=== PATIENT | male | born 1995 | race Caucasian/White ===

== ENCOUNTER 2024-01-26 19:23 | Emergency (ER) | payer SELFPAY ==
[2024-01-26 19:28] VITALS: BP 185/108
[2024-01-26] MEDS: TORADOL 30 MG IV (19:37)
[2024-01-26] MEDS: ZOFRAN 4 MG IV (19:39)
[2024-01-26] MEDS: NSS 1000 IV (19:39)
--- NOTE | 2024-01-26 19:39 | ED.GENMED ---
History of Present Illness
General
Chief Complaint: Abdominal Pain
Source: patient
Exam Limitations: none
Time Seen by Provider: 01/26/24 19:31
History of Present Illness
History of Present Illness:
This is a 28 year old male that comes in with c/o right flank pain. States that this started yesterday and today the pain got worse. State that it is in the right back and flank. States that he is nauseated and vomiting. States that he also has a
headache. Denies any fever, chills, chest pain, SOB, diarrhea, dizziness, urinary burning.
Past History
Past History
ED Past Medical History: Other (TBI, Lacerated Spleen)
ED Past Surgical History: Orthopedic (Clavicle repair Left)
Social History
Tobacco: Former smoker
Alcohol: Occasional
Drug: Marijuana
Personal: Single
Living: with family
Review of Systems
Review of Systems
All Other Systems: ROS reviewed and negative except as documented in HPI and ROS
Constitutional: Reports no symptoms; Denies fever or chills
EENT: Reports no symptoms
Respiratory: Reports no symptoms; Denies cough or trouble breathing
Cardiac: Reports no symptoms; Denies chest pain
ABD/GI: Reports abdominal pain (Right Sided), nausea and vomiting; Denies diarrhea
: Reports flank pain (Right sided); Denies dysuria, frequency or urgency
Musculoskeletal: Reports no symptoms
Skin: Reports no symptoms
Neurological: Reports headache; Denies dizzy
Psychiatric: Reports no symptoms
Phy Exam
General Physical Exam
General Presentation: moderate distress (Hyperventilating at this time)
General age: appears stated age
General Skin: diaphoretic
General Habitus: normal
General Mental: alert
General Hydration: appears well hydrated
ENT Exam
ENT Exam: TM's normal, pharynx normal and neck supple
Eye Exam
Eye Exam: EOMI
Cardiovascular Exam
Cardiovascular Exam: no edema, no murmur, normal peripheral pulses and tachycardia
Pulmonary Exam
Pulmonary Exam: lungs clear, no respiratory distress, no rales, chest non tender, no crackles, no rhonchi, no wheezing and no cough
Gastrointestinal Exam
Gastrointestinal Exam: normal bowel sounds, soft, no organomegaly, no pulsatile mass, non distended, cva tenderness (Right Sided) and tender (Slight right sided tenderness with palpation)
Musculoskeletal Exam
Musculoskeletal Exam: full ROM and no edema
Skin Exam
Skin Exam: no rash, no petechia and other (Clammy)
Psychiatric Exam
Psychiatric Exam: anxious
Course
Orders/Labs/Results
Orders:
Orders
01/26/24 19:36
Complete Blood Count/With Diff Urgent
Comprehensive Metabolic Panel Urgent
Lipase Urgent
Ketorolac [Toradol] 30 mg .ROUTE .STK-MED ONE
01/26/24 19:37
Ketorolac [Toradol] 30 mg IV NOW STA
Ondansetron Injectable [Zofran] 4 mg .ROUTE .STK-MED ONE
01/26/24 19:38
0.9% Sodium Chloride 1000 ml [Nss] 1,000 ml IV BOLUS
01/26/24 19:39
CT Abd/pelvis W Iv Cont Urgent
Comment:
Reason For Exam: Right lower abd pain/flank pain
Ondansetron Injectable [Zofran] 4 mg IV NOW STA
01/26/24 19:50
HYDROmorphone [Dilaudid] 0.5 mg IV NOW STA
01/26/24 19:51
HYDROmorphone [Dilaudid] 0.5 mg .ROUTE .STK-MED ONE
01/26/24 20:14
Acetaminophen 1000MG/100Ml [Ofirmev] 1,000 mg in 100 ml IV ONCE
Acetaminophen IV Indication:: ED Narcotic Naive Pt-ONCE
01/26/24 20:16
Fentanyl, Urine Urgent
Glucose Urgent
Urinalysis Reflex To Culture Urgent
Date Specimen was Collected: 01/26/24
Time Specimen was Collected: 20:14
Urine Drug Abuse Screen Urgent
Date Specimen was Collected: 01/26/24
Time Specimen was Collected: 20:14
Urine Microscopic Reflex Cult Urgent
Urine Culture Urgent
ANTHONY Source: U
Specimen Description:
Date Specimen was Collected: 01/26/24
Time Specimen was Collected: 20:14
01/26/24 20:30
Add On- LAB Urgent
Tests Added?: urine drug abuse screen
01/26/24 21:40
HYDROmorphone [Dilaudid] 1 mg IV NOW STA
Abnormal Lab Results
01/26/24 01/26/24
19:36 20:16
WBC 13.9 H 10^3/uL
(4.8-10.8)
Abs Immat Gran (auto) 0.1 H 10^3/uL
(0-0.05)
Absolute Neuts (auto) 9.4 H 10^3/uL
(1.4-6.5)
Absolute Monos (auto) 1.0 H 10^3/uL
(0.1-0.6)
Glucose 48 L* mg/dl 107 H mg/dl
(70-99) (70-99)
Calcium 10.9 H mg/dl
(8.4-10.2)
Total Protein 8.4 H g/dl
(6.3-8.2)
Albumin 5.3 H g/dl
(3.5-5.0)
Ur Occult Blood Reflex 4+ A
(Negative)
Leukocyte Esterase Rfl 2+ A
(Negative)
Urine RBC 3-6 A /HPF
(0-2)
Urine WBC (Reflex) 16-20 A /HPF
(0-5)
Urine Bacteria (Reflex) Many A
(Negative)
U Methamphetamines Scrn Positive H
(Negative)
U Marijuana (THC) Screen Positive H
(Negative)
01/26/24 19:36
01/26/24 20:16
Leukocytosis, Glucose was not 48, (glucose was not 48, finger stick was 98 and with repeat BS by chemistry it was 107), Calcium slightly elevated. Total protein slightly elevated. Albumin slightly elevated. Urine questionable for infection. Urine
drug positive for Methamphetamines and marijuana.
Vital Signs
Initial and Last Documented VS:
Initial Vital Signs
Temp Pulse Resp Pulse Ox
97.5 F 124 16 97
01/26/24 19:24 01/26/24 19:24 01/26/24 19:24 01/26/24 19:24
Last Documented Vital Signs
Temp Pulse Resp BP Pulse Ox
97.5 F 67 15 119/57 94
01/26/24 19:24 01/26/24 22:15 01/26/24 22:15 01/26/24 22:01 01/26/24 22:15
Reiki Practitioner consulted with Physician
Reiki Practitioner consulted with physician?: Yes
Name of Physician Consulted: Dr. Robin
MDM/Problems Addressed
Differential Diagnosis Includes:
Renal calculus, Appendicitis
MDM/Problems Addressed:
This is a 28 year old male that comes in with c/o right sided flank/abd pain. States that this started yesterday and has continued to get worse today.
Will chest labs, give IV fluids and pain medication. Will get Ct scan.
'
Patient blood sugar on his chemistry came back at 48. However, finger stick at this time is 98. Will recent Glucose
Back into see patient. Patient states that he is feeling better. Explained that he has a 3mm stone that is proximal in the ureter. Offered patient admission but he refused. Will have patient use Tylenol 1000mg every 6 hours and Ibuprofen 600mg every
6 hours for pain. Will also give a prescription for Zofran and Oxycodone for severe pain. Will also give patient Keflex to treat any UTI symptoms. Patient to strain his urine. Return with increased or changing pain, fever, or any other concerns.
Chronic conditions affecting care:
NA
Acute Exacerbation and/or Progression of Chronic Illness:
NA
*Radiology
Radiology exam reviewed: radiology read reviewed (CT night hawk- Obstructing 3mm right UPJ stone with associated mild hydronephrosis and delayed renal enhancement. Few additional punctate nonobstructing renal stones bilaterally. Decompressed bladder
with diffuse wall thickening. Correlate with urinalysis for Cystitis. Appendix not visualized.) and other (CT cont- no apparent bowel pathology. No pericholecystic or peripancreatic inflammation. )
*Pulse Oximetry
Patient hypoxic: no
*EKG
Interpreted by ED Provider?: NA
Rate: EKG- N/A
*Business Line Manager Interpretation
Rate: tachycardiac
Heart Rate: 113
Rhythm: sinus tachycardia
*Critical Care Note
Total Time (30-74mins, 75-104mins- exclusive of procedures): Not Applicable
ED Attending Note
-
Portions of this chart may have been created with voice recognition software.� Occasional wrong word or��sound alike� substitutions may have occurred due to the inherent limitations of voice recognition software.
Discharge Plan
Departure
Patient Disposition: Home (Routine Discharge)
Date of Disposition: 01/26/24
Time of Disposition: 22:46
Patient with high blood pressure during this ER visit?: No
Condition: Good
Covid-19: Not Applicable
Discharge Problem:
Renal calculus, right
Instructions: Renal Colic (DC), How to Strain Your Urine
Prescriptions:
New
ondansetron 4 mg tablet,disintegrating
4 mg PO Q8H PRN (Reason: nausea and vomiting) Qty: 10 0RF
oxycodone 5 mg tablet
5 mg PO Q8H PRN (Reason: Pain) Qty: 10 0RF
cephalexin 500 mg capsule
500 mg PO BID 7 Days Qty: 14 0RF
No Action
penicillin V potassium 500 mg tablet
500 mg PO QID Qty: 39 0RF
Referrals:
NONE,* [Active] -
Activity Restrictions/Additional Instructions:
As discussed, you have a 3mm proximal renal calculus. Your urine is also questionable for infection. You have been offered admission but have decided to go home. You have had three prescription sent to your Pharmacy. The first is for Zofran to help
with any nausea/vomiting. The Second is Oxycodone to help with severe pain. The last is Keflex to help with any urinary tract infection. You may also use Tylenol 1000mg every 6 hours for pain and alternate with ibuprofen 600mg every 6 hours with
food for pain. Please increase your water intake to 8-8oz glasses daily. Please strain your urine. Follow up with the Urologist in the next 5-7 days. IF YOU HAVE FEVER, INCREASED OR CHANGING PAIN, OR YOU HAVE ANY OTHER CONCERNS PLEASE RETURN TO THE
EMERGENCY ROOM.
Interventions
Interventions:
*Risk Screen - Suicide Last Done: 01/26/24 19:27
*Neglect/Abuse Screening Last Done: 01/26/24 19:27
*ED COVID-19 Vaccine History Last Done: 01/26/24 19:27
GE-Bwxywh-Xzkcepljxv Assessment Last Done: 01/26/24 19:41
Discharge Date and Time
Print Language: TAMAZIGHT
[2024-01-26 19:49] LABS: % Basophils 0.3 % (0-2); % Eosinophils 0.9 % (0-6); % Immature Granulocytes 0.4 % (0-0.5); % Monocytes 7.5 % (1.7-9.3); % Neutrophils 67.9 % (42.2-75.2); Absolute Eosinophils 0.1 10^3/uL (0-0.7); Absolute Immature Granulocytes 0.1 10^3/uL (0-0.05); Absolute Lymphocytes 3.2 10^3/uL (1.2-3.4); Absolute Neutrophils 9.4 10^3/uL (1.4-6.5); Hematocrit 43.5 % (39.0-52.0); Hemoglobin 14.6 g/dL (13.0-18.0); Mean Corp Hgb Conc. 33.6 g/dL (33.0-37.0); Mean Corpuscular Hgb 30.6 pg (27.0-31.0); Mean Corpuscular Volume 91.2 fL (80.0-94.0); Mean Platelet Volume 9.1 fL (7.4-10.4); Nucleated Red Blood Cells % 0 % (-); Platelet Count 330 10^3/uL (130-400); Red Blood Cell Count 4.77 10^6/uL (4.70-6.10); Red Cell Dist. Width 12.9 % (11.5-14.5); White Blood Cell Count 13.9 10^3/uL (4.8-10.8)
[2024-01-26] MEDS: DILAUDID 0.5 MG IV (19:52)
[2024-01-26 20:07] LABS: AST (SGOT) 33 U/L (17-59); Albumin 5.3 g/dl (3.5-5.0); Alkaline Phosphatase 90 U/L (38-126); Blood Urea Nitrogen 20 mg/dl (9-20); Calcium 10.9 mg/dl (8.4-10.2); Carbon Dioxide 26 mmol/L (22-30); Chloride 102 mmol/L (98-107); Glucose 48 mg/dl (70-99); Lipase 78 U/L (23-300); Potassium 4.2 mmol/L (3.5-5.1); Sodium 143 mmol/L (135-145); Total Bilirubin 0.4 mg/dl (0.2-1.3); Total Protein 8.4 g/dl (6.3-8.2); eGFR > 60.00
[2024-01-26 20:11] LABS: Glucose - Point of Care 98 mg/dl (70-99)
[2024-01-26] MEDS: OFIRMEV 100 IV (20:19)
[2024-01-26 20:24] LABS: Urine Albumin Trace (Neg - Trace); Urine Bilirubin Negative (Negative); Urine Character Clear (Clear); Urine Color Yellow; Urine Glucose Negative (Negative); Urine Ketone Negative (Negative); Urine Leukocyte 2+ (Negative); Urine Nitrite Negative (Negative); Urine Occult Blood 4+ (Negative); Urine Specific Gravity 1.015 (<1.030); Urine Urobilinogen Negative (Neg - 1+)
[2024-01-26 20:39] LABS: Urine Calcium Oxalate Crystals Present; Urine Mucus Many
[2024-01-26 20:40] LABS: Urine Bacteria Many (Negative); Urine White Cell 16-20 /HPF (0-5)
[2024-01-26 20:43] LABS: Glucose 107 mg/dl (70-99)
[2024-01-26 20:45] LABS: Amphetamines Negative (Negative); Barbiturates Negative (Negative); Benzodiazepines Negative (Negative); Buprenorphine Negative (Negative); Cocaine Negative (Negative); Marijuana Positive (Negative); Methadone Negative (Negative); Methamphetamines Positive (Negative); Opiates Negative (Negative); Phencyclidine Negative (Negative); Tricyclic Antidepressants Negative (Negative)
[2024-01-26 20:46] LABS: ALT (SGPT) 25 U/L (0-50)
[2024-01-26 21:00] VITALS: BP 115/71
[2024-01-26 21:01] LABS: Fentanyl, Urine Negative (Negative)
[2024-01-26] MEDS: DILAUDID 1 MG IV (21:43)
[2024-01-26 21:45] VITALS: BP 112/81
[2024-01-26 22:01] VITALS: BP 119/57
[2024-01-26 23:00] VITALS: BP 126/73
[2024-01-26] MEDS: KEFLEX 500 MG PO (23:00)
== END 2024-01-26 23:08 | disposition home or self-care (01) ==
LOC: EMR 19:23
PROVIDERS: Clinical Nurse Specialist Family Health; EMERGENCY PHYSICIAN Emergency Medicine
DX: N13.2 Hydronephrosis with renal and ureteral calculous obstruction (principal); Z87.891 Personal history of nicotine dependence; Z87.820 Personal history of traumatic brain injury
CPT/HCPCS: 96374; 96375; 96376; 99284; 74177; 80053; 80306; 80307; 81003; 81015; 82947; 82962; 83690; 85025; 87086; Q9967

== ENCOUNTER 2024-01-29 08:44 | Inpatient (IN) | payer OTHER, SELFPAY ==
[2024-01-27] MEDS: DILAUDID 1 MG IV (11:46)
[2024-01-27] MEDS: ZOFRAN 4 MG IV (11:47)
[2024-01-27] MEDS: TORADOL 15 MG IV (11:47)
[2024-01-27] MEDS: NSS 1000 IV ×2 (11:48→17:29)
[2024-01-27 12:03] LABS: % Basophils 0.3 % (0-2); % Eosinophils 0.7 % (0-6); % Immature Granulocytes 0.5 % (0-0.5); % Lymphocytes 17.6 % (20.5-51.1); % Monocytes 7.1 % (1.7-9.3); % Neutrophils 73.8 % (42.2-75.2); Absolute Eosinophils 0.1 10^3/uL (0-0.7); Absolute Immature Granulocytes 0.1 10^3/uL (0-0.05); Absolute Lymphocytes 2.2 10^3/uL (1.2-3.4); Absolute Monocytes 0.9 10^3/uL (0.1-0.6); Absolute Neutrophils 9.1 10^3/uL (1.4-6.5); Hematocrit 40.9 % (39.0-52.0); Hemoglobin 13.6 g/dL (13.0-18.0); Mean Corp Hgb Conc. 33.3 g/dL (33.0-37.0); Mean Corpuscular Hgb 30.4 pg (27.0-31.0); Mean Corpuscular Volume 91.5 fL (80.0-94.0); Mean Platelet Volume 9.4 fL (7.4-10.4); Nucleated Red Blood Cells % 0 % (-); Platelet Count 282 10^3/uL (130-400); Red Blood Cell Count 4.47 10^6/uL (4.70-6.10); Red Cell Dist. Width 13.2 % (11.5-14.5); White Blood Cell Count 12.3 10^3/uL (4.8-10.8)
[2024-01-27 12:15] LABS: AST (SGOT) 37 U/L (17-59); Alkaline Phosphatase 80 U/L (38-126); Blood Urea Nitrogen 17 mg/dl (9-20); Calcium 10.2 mg/dl (8.4-10.2); Carbon Dioxide 20 mmol/L (22-30); Chloride 103 mmol/L (98-107); Glucose 96 mg/dl (70-99); Potassium 4.1 mmol/L (3.5-5.1); Sodium 143 mmol/L (135-145); Total Bilirubin 0.5 mg/dl (0.2-1.3); Total Protein 7.8 g/dl (6.3-8.2); eGFR > 60.00
[2024-01-27 12:25] LABS: ALT (SGPT) 31 U/L (0-50)
--- NOTE | 2024-01-27 13:03 | ED.GENMED ---
History of Present Illness
General
Chief Complaint: Flank Pain
Source: patient
Exam Limitations: none
Time Seen by Provider: 01/27/24 11:42
Nursing documentation reviewed up to this point in time: agreed with
History of Present Illness
History of Present Illness:
28 y/o M with h/o kidney stone diagnosed yesterday on CT scan
3 mm R proximal ureter
went home with ibuprofen and oxycodone
took dose last night and aagina this morning with severe waxing and waning pain R side
nausea and a few episodes vomiting
no fever/chills
able to urinate
comes in yelling and moaning
Past History
Past History
ED Past Medical History: Other (TBI, Lacerated Spleen)
ED Past Surgical History: Orthopedic (Clavicle repair Left)
Social History
Tobacco: Former smoker
Alcohol: Occasional
Drug: Marijuana
Personal: Single
Living: with family
Review of Systems
Review of Systems
Allergies reviewed?: Yes
All Other Systems: Not applicable
Phy Exam
Physical Exam
Physical Exam:
GENERAL: Alert, uncomfortable, writhing
Neck: supple
CARDIAC: Regular rate and rhythm .
LUNGS: Clear breath sounds bilaterally, no acute respiratory distress, no wheezes/rales/rhonchi
ABDOMEN: Soft, normal bowel sounds, nondistended, nontender no guarding, no rebound, neg bernal's
NEUROLOGICAL: Alert and oriented, no focal neuro deficits
SKIN: Warm and dry, skin intact.
PSYCH: Normal and appropriate interaction.
Course
Orders/Labs/Results
Orders:
Orders
01/27/24 11:42
0.9% Sodium Chloride 1000 ml [Nss] 1,000 ml IV BOLUS
HYDROmorphone [Dilaudid] 1 mg IV NOW STA
Ketorolac [Toradol] 15 mg IV NOW STA
Ondansetron Injectable [Zofran] 4 mg IV NOW STA
01/27/24 11:52
Complete Blood Count/With Diff Urgent
Comprehensive Metabolic Panel Urgent
01/27/24 12:54
Acetaminophen 1000MG/100Ml [Ofirmev] 1,000 mg in 100 ml IV ONCE
Acetaminophen IV Indication:: ED Narcotic Naive Pt-ONCE
HYDROmorphone [Dilaudid] 0.5 mg IV NOW STA
01/27/24 14:51
Admit/Transfer Patient As Directed
Co-Sign Provider:
Level of Care: Observation services
Assign to:: Medical/Surgical
Physician / Group: nakul
Diagnosis: ureteral stone
01/27/24 14:52
Code Status As Directed
Resuscitation Status: Full Code
PRN Pain Medication Management As Directed
May give lesser potent ordered pain med per pt: Yes
preference::
Protocol:: Medication orders for pain may be administered in a
manner that supports deferring to patient preference
when the pt is:
- Requesting an ordered lesser potent pain medication.
Least to most potent pain medications are defined
as: acetaminophen < NSAID < tramadol < opioids
(morphine, oxycodone, hydromorphone).
- Requesting a lesser dose of the same medication IF
ORDERED.
- Requesting a less intrusive route of administration
if both routes are prescribed by the provider (PO <
IV).
01/27/24 Dinner
Regular
At Your Request: Full Participation
01/27/24 16:04
HYDROmorphone [Dilaudid] 0.5 mg IV Q4HPRN PRN
01/27/24 16:42
0.9% Sodium Chloride 1000 ml [Nss] 1,000 ml IV 100 mls/hr
CefTRIAXone [Rocephin] 1,000 mg IV Q24H
Ketorolac [Toradol] 10 mg IV Q6HPRN PRN
Ondansetron Injectable [Zofran] 4 mg IV Q6HPRN PRN
01/27/24 16:42
UROLOGY CONSULT Routine
Consulting Provider: Juan Evangelista
Was physician already notified: Yes
Activity As Directed
Activity Level: As Tolerated
Pneumatic Compression Sleeves As Directed
Type: Knee high
Strain Urine As Directed
Vital Signs As Directed
Frequency: Per unit guidelines
DX Deep Vein Thrombosis Video Routine
01/28/24 Breakfast
NPO
Allow oral meds: Yes
Allow clear liquids: Sips of Clears
Complete Blood Count/With Diff IN AM
Comprehensive Metabolic Panel IN AM
Abnormal Lab Results
01/27/24
11:52
WBC 12.3 H 10^3/uL
(4.8-10.8)
RBC 4.47 L 10^6/uL
(4.70-6.10)
Abs Immat Gran (auto) 0.1 H 10^3/uL
(0-0.05)
Absolute Neuts (auto) 9.1 H 10^3/uL
(1.4-6.5)
Absolute Monos (auto) 0.9 H 10^3/uL
(0.1-0.6)
Lymphocytes % 17.6 L %
(20.5-51.1)
Carbon Dioxide 20 L mmol/L
(22-30)
01/27/24 11:52
01/27/24 11:52
Vital Signs
Initial and Last Documented VS:
Initial Vital Signs
Pulse Resp Pulse Ox
81 20 100
01/27/24 11:34 01/27/24 11:34 01/27/24 11:34
Last Documented Vital Signs
Temp Pulse Resp BP Pulse Ox
97.9 F 59 20 123/59 96
01/27/24 13:39 01/27/24 13:39 01/27/24 11:34 01/27/24 13:39 01/27/24 13:39
MDM/Problems Addressed
Differential Diagnosis Includes:
kidney stone, intractable pain
MDM/Problems Addressed:
28 y/o M with recently diagnosed kidney stone
returns for intractable pain despite oral meds
vomiting, pale, writhing
nontender abdomen
stable vitals
wbc improved from yesterday
cr normla
did not feel that repeat imaging was helpful
after dose of dialudid toradol pt had brief improvement of symptoms which returned
will be remedicated and obs for intractable pain
i spoke with dr. evangelista from urology who initially accepted him to his service but then he requested that pt be admitted to [facility] with urology consult.
*Critical Care Note
Total Time (30-74mins, 75-104mins- exclusive of procedures): Not Applicable
ED Attending Note
-
Portions of this chart may have been created with voice recognition software.� Occasional wrong word or��sound alike� substitutions may have occurred due to the inherent limitations of voice recognition software.
Discharge Plan
Departure
Patient Disposition: Admit
Date of Disposition: 01/27/24
Time of Disposition: 13:09
Admit to: Med/Surg
Presentation/result/management discussed w/ accepting MD/DO: Hospitalist
Condition: Fair
Covid-19: Not Applicable
Discharge Problem:
Intractable abdominal pain, Kidney stone
Interventions
Interventions:
*Risk Screen - Suicide Last Done: 01/27/24 11:34
*General Assessment Last Done: 01/27/24 11:34
*Neglect/Abuse Screening Last Done: 01/27/24 11:34
ED- Fall Risk Assessment Last Done: 01/27/24 14:00
*ED COVID-19 Vaccine History Last Done: 01/27/24 16:47
YO-Ftfeij-Flkuugzkgg Assessment Last Done: 01/27/24 14:00
ED-Male Genitourinary Assessment Last Done: 01/27/24 14:00
[2024-01-27] MEDS: DILAUDID 0.5 MG IV ×3 (13:11→20:29)
[2024-01-27] MEDS: OFIRMEV 100 IV (13:12)
[2024-01-27 13:39] VITALS: BP 123/59
--- NOTE | 2024-01-27 15:05 | HPS.HSE ---
Family Physician
-
Family Physician: Tobi Stone
Chief Complaint
-
right flank pain
History of Present Illness
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 He came to the emergency room
yesterday with right flank/back pain. He has nausea and vomiting. He also had a headache. Denied any fevers or chills, chest pain, shortness of breath, diarrhea, dizziness or urinary symptoms or blood in the urine.
He was found to have 3 mm stone in the proximal ureter and was offered admission yesterday but refused.
He rarely drinks alcohol. He denies smoking nicotine. He smokes marijuana.
Medical History
Past Medical History
Past Medical History: Reports Other (traumatic brain injury from snowboarding accident with splenic laceration, clavicular fracture status post surgery)
Past Surgical History: Reports Other (clavicular fracture status post surgery)
Social History
Tobacco: Non-smoker
Alcohol: Occasional
Drug: Marijuana
Family History
Family History: Not pertinent
Allergies / Home Medications
Allergies reflects when Allergies were last updated in [facility].
Home Medications with original date entered in [facility]
Allergy/Medication List:
Allergies
Allergy/AdvReac Type Severity Reaction Status Date / Time
No Known Allergies Allergy Verified 01/27/24 11:34
Home Medications
cephalexin 500 mg capsule 500 mg PO BID Urinary issue 7 days #14 caps 01/26/24
ondansetron 4 mg disintegrating tablet 4 mg PO Q8H PRN nausea and vomiting #10 tabs 01/26/24
oxycodone 5 mg tablet 5 mg PO Q8H PRN Pain #10 tabs 01/26/24
Review of Systems
-
History Source: Patient
A 12 point ROS was completed and negative except as noted: Yes
Constitutional: Reports No Symptoms
EENT: Reports No Symptoms
Respiratory: Reports No Symptoms
Cardiac: Reports No Symptoms
Abdomen/GI: Reports No Symptoms
: Reports See HPI
Musculoskeletal: Reports No Symptoms
Skin: Reports No Symptoms
Neurological: Reports No Symptoms
Endocrine: Reports No Symptoms
Hematologic/Lymphatic: Reports No Symptoms
Psych: Reports No Symptoms
Physical Exam
Vital Signs
Vital Signs
Temp Pulse Resp BP Pulse Ox
97.9 F 59 20 123/59 96
01/27/24 13:39 01/27/24 13:39 01/27/24 11:34 01/27/24 13:39 01/27/24 13:39
Physical Exam
General: Well Developed, Well Nourished and No Apparent Distress
HEENT: NormoCephalic, Moist mucous membranes and Atraumatic
Respiratory: Clear
Cardiac: S1/S2 and Regular Rhythm; No Murmur or Rub
GI: Soft, Non Tender, Non Distended and Normal Bowel Sounds; No Organomegaly
Rectal: Deferred by Provider
Musculoskeletal: No Clubbing, No Cyanosis and No Edema
Skin: No Rash
Neuro: Nonfocal/grossly intact
Laboratory Results
-
01/27/24 11:52
01/27/24 11:52
Laboratory Results
Total Bilirubin 0.5 mg/dl (0.2-1.3) 01/27/24 11:52
AST 37 U/L (17-59) 01/27/24 11:52
ALT 31 U/L (0-50) 01/27/24 11:52
Alkaline Phosphatase 80 U/L (38-126) 01/27/24 11:52
Data Reviewed
-
Lab Data: Labs Reviewed by me
Old Records: Reviewed
Impression/Plan
-
IMPRESSION:
PLAN:
# Proximal right ureter stone with mild hydronephrosis
-Strain urine
-CT scan shows 3 mm stone in proximal ureter
-Urinalysis shows 16-20 WBCs
-IV fluids
-N.p.o. past midnight
-Ceftriaxone
-Toradol, Dilaudid, zofran
-Strain urine
-Urology consulted
History of snowboarding accident with resulting in traumatic brain injury, clavicular fracture status post surgery, splenic laceration
Marijuana user
Full code
DVT prophylaxis�SCDs
N.p.o. postmidnight
[2024-01-27 16:40] VITALS: BMI 22.3
--- NOTE | 2024-01-27 16:40 | PTCARENOTE ---
Patient arrived from ED @16:40 via stretcher, ambulated to balanced standing scale and bedside, VSS; RLQ pain level 2; admission history obtained from patient.
--- NOTE | 2024-01-27 16:45 | PTCARENOTE ---
Patient educated on need to strain all urine; strainer placed in bathroom; patient acknowledged understanding.
[2024-01-27 17:08] VITALS: BP 99/64
[2024-01-27] MEDS: ROCEPHIN 1000 MG IV (17:29)
[2024-01-27] MEDS: STERILE WATER FOR INJECTION 10 ML IV (17:29)
[2024-01-27] MEDS: TORADOL 10 MG IV (22:21)
[2024-01-27 23:18] VITALS: BP 107/62
[2024-01-28] VITALS (16 sets, daily range): BP systolic 100–145; BP diastolic 58–91
[2024-01-28] MEDS: NSS 1000 IV ×2 (02:16→14:12)
[2024-01-28] MEDS: DILAUDID 0.5 MG IV ×5 (03:31→21:20)
[2024-01-28 06:35] LABS: % Basophils 0.3 % (0-2); % Eosinophils 1.8 % (0-6); % Immature Granulocytes 0.1 % (0-0.5); % Lymphocytes 30.5 % (20.5-51.1); % Monocytes 9.3 % (1.7-9.3); Absolute Eosinophils 0.1 10^3/uL (0-0.7); Absolute Lymphocytes 2.2 10^3/uL (1.2-3.4); Absolute Monocytes 0.7 10^3/uL (0.1-0.6); Absolute Neutrophils 4.2 10^3/uL (1.4-6.5); Hematocrit 34.3 % (39.0-52.0); Hemoglobin 11.4 g/dL (13.0-18.0); Mean Corp Hgb Conc. 33.2 g/dL (33.0-37.0); Mean Corpuscular Hgb 31.2 pg (27.0-31.0); Mean Platelet Volume 9.6 fL (7.4-10.4); Nucleated Red Blood Cells % 0 % (-); Platelet Count 191 10^3/uL (130-400); Red Blood Cell Count 3.65 10^6/uL (4.70-6.10); Red Cell Dist. Width 13.2 % (11.5-14.5); White Blood Cell Count 7.3 10^3/uL (4.8-10.8)
[2024-01-28 06:52] LABS: ALT (SGPT) 24 U/L (0-50); AST (SGOT) 37 U/L (17-59); Albumin 3.5 g/dl (3.5-5.0); Alkaline Phosphatase 58 U/L (38-126); Blood Urea Nitrogen 16 mg/dl (9-20); Calcium 8.8 mg/dl (8.4-10.2); Carbon Dioxide 28 mmol/L (22-30); Chloride 105 mmol/L (98-107); Estimated Creatinine Clearance > 125 ml/min; Glucose 89 mg/dl (70-99); Potassium 4.5 mmol/L (3.5-5.1); Sodium 140 mmol/L (135-145); Total Bilirubin 0.3 mg/dl (0.2-1.3); Total Protein 5.9 g/dl (6.3-8.2); eGFR > 60.00
--- NOTE | 2024-01-28 07:28 | W.PN.HOSP.TC ---
Today's Communication/Plan
-
Plan to go to the OR by urology today.
Assessment / Plan
Assessment / Plan
Physical exam:
General: Well Developed, Well Nourished and No Apparent Distress
HEENT: Normocephalic, Atraumatic and Moist Mucous Membranes
Respiratory: Clear to Auscultation; Negative Wheezes, Rales or Rhonchi
Cardiac: Regular Rhythm and S1/S2
GI: Soft, Nontender and Nondistended
Musculoskeletal: Right flank pain. No Clubbing, No Cyanosis and No Edema
Neuro: Awake, Alert and Oriented
Psych: Calm
A/P:
# Proximal right ureter stone with mild hydronephrosis
-Strain urine
-CT scan shows 3 mm stone in proximal ureter
-Urinalysis shows 16-20 WBCs
-IV fluids
-N.p.o. past midnight
-Ceftriaxone
-Toradol, Dilaudid, zofran
-Strain urine
-Urology consulted
-Plan to go to the OR today--> confirmed with urology today
History of snowboarding accident with resulting in traumatic brain injury, clavicular fracture status post surgery, splenic laceration
Marijuana user
Full code
DVT prophylaxis�SCDs
Anticipated Discharge: Within 24 hours
Subjective/Interval History
-
Date of Service: January 28, 2024
Patient still having right flank pain. Afebrile
Objective Data
-
Labs:
Laboratory Results
01/28/24
05:54
WBC 7.3
Hgb 11.4 L
Hct 34.3 L
Plt Count 191 D
Sodium 140
Potassium 4.5
Chloride 105
Carbon Dioxide 28
BUN 16
Creatinine 0.9
Glucose 89
Calcium 8.8
Total Bilirubin 0.3
AST 37
ALT 24
Alkaline Phosphatase 58
Vital Signs:
Vital Signs
Temp Pulse Resp BP Pulse Ox
97.3 F 71 20 107/62 100
01/27/24 23:18 01/27/24 23:18 01/27/24 23:18 01/27/24 23:18 01/27/24 23:18
I&O
01/27/24 01/28/24 01/29/24
06:59 06:59 06:59
Intake Total 1040 / 1040 1200 / 1200
Output Total 600 / 600
Balance 440 / 440 1200 / 1200
--- NOTE | 2024-01-28 08:14 | CONS.URO ---
Consultation
-
Date/Time Consultation Performed: 01/28/2024 0745
Requesting Provider: Eve
Performing Provider: Piero
Reason for Consultation: right ureteral stone
Medical History
History of Present Illness
Dr Prado's admission note: '28 y/o M with h/o kidney stone diagnosed yesterday on CT scan
3 mm R proximal ureter
went home with ibuprofen and oxycodone
took dose last night and aagina this morning with severe waxing and waning pain R side
nausea and a few episodes vomiting
no fever/chills
able to urinate
comes in yelling and moaning'
no prior stone hx
Past Medical History
Past Surgical History: Other (TBI, Lacerated Spleen,Clavicle repair Left)
Social History
Tobacco: Former Smoker
Family History
Family History: Reviewed & Not Pertinent
Allergies/Home Medications
Allergies
Allergy/AdvReac Type Severity Reaction Status Date / Time
No Known Allergies Allergy Verified 01/27/24 11:34
Home Medications
�Medication �Instructions �Recorded �Confirmed �Type
cephalexin 500 mg capsule 500 mg PO BID Urinary issue 7 days 01/26/24 01/27/24 Rx
#14 caps
ondansetron 4 mg disintegrating 4 mg PO Q8H PRN nausea and 01/26/24 01/27/24 Rx
tablet vomiting #10 tabs
oxycodone 5 mg tablet 5 mg PO Q8H PRN Pain #10 tabs 01/26/24 01/27/24 Rx
Physical Exam
Vital Signs
Vital Signs
Temp Pulse Resp BP Pulse Ox
97.8 F 59 17 107/63 97
01/28/24 07:31 01/28/24 07:31 01/28/24 07:31 01/28/24 07:31 01/28/24 07:31
Lab / Testing Results
Laboratory Results
01/28/24 05:54
01/28/24 05:54
Physical Exam
General: Well Developed, Well Nourished and No Apparent Distress
Genito-urinary: No Costovertebral Tend
Skin: Warm
Neuro: Awake, Alert and Oriented
Psych: Calm
Assessment / Plan
-
Right Ureteral Stone: 3 mm, proximal, obstructing
Intolerable pain: 'I'm not going home again with this stone in still in me'
Data Reviewed
-
CT Scan: Image personally visualized and interpreted
Lab Data: Labs Reviewed
Old Records: Reviewed
--- NOTE | 2024-01-28 10:40 | CM ---
CM met with pt bedside
Pt resides alone in a one story apartment on his parent's property- [place]
He is indep with his ADLs- denies use of DMes
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
Denies financial insecurities
Pt is uninsured- has already spoken to [facility] on MA eduar and process
Naila info in dc folder in the case MA is denied
PCP- none, Jennifer Blore listed but noted he has not seen a PCP since is early childhood education specialist
Rx- [facility]
Parents are listed as primary contacts
In agreement with medical info and updates to them
Discharge Disposition- anticipate home no needs
[2024-01-28] MEDS: TORADOL 10 MG IV (11:07)
--- NOTE | 2024-01-28 16:00 | W.IMMPOSTOP ---
Surgical Immed Post Op Note
-
Primary Surgeon: Dwayne
Pre-op Diagnosis: Obstructing proximal right ureteral stone, intractable renal colic
Post-op Diagnosis: Same
Procedure Performed: cystoscopy, right URS/laser lithotripsy/stone extraction/stent placement
Anesthesia Type: LMA
Specimen / Cultures: Stones for analysis/None
Estimated Blood Loss: Negligible
Drains: 4.7Fr x 26 cm JJ right ureteral stent
Complications: None
Operative Findings: Final KUB and cysto confirming appropriate stent position.
3 mm crystalline yellowish-brown stone fragmented in kidney - fragment sent for analysis.
[2024-01-28] MEDS: DETROL LA 4 MG PO (16:31)
[2024-01-28] MEDS: Pyridium 200 MG PO (16:31)
[2024-01-28] MEDS: VALIUM INJECTION 5 MG IV (16:55)
[2024-01-28] MEDS: ROCEPHIN 1000 MG IV (17:19)
[2024-01-28] MEDS: STERILE WATER FOR INJECTION 10 ML IV (17:19)
--- NOTE | 2024-01-28 17:28 | PTCARENOTE ---
Addendum entered by Carmella Mejias RN 01/28/24 17:39:
Pt awake, crying in pain stating ' i am overwhelmed with the amount of pain'. Dr Núñez notified. Awaiting response.
Original Note:
Pt returned from PACU in bed. Crying and moaning, c/o severe R abdominal pain radiating to his back, PRN dilaudid provided and Dr Rice notified. IVF infusing per order. Pt appears to be falling asleep in between care and then awakening moaning in
pain, tensing, and hyperventilating, and then falling back asleep. Therapeutic communication utilized and pt instructed on slow deep breathing. Bed locked and in the lowest position, safety maintained. Oriented to room and call dubose.
[2024-01-28] MEDS: TORADOL 30 MG IV (17:51)
[2024-01-29 03:02] VITALS: BP 135/66
[2024-01-29] MEDS: NSS 1000 IV (04:18)
[2024-01-29] MEDS: NSS IV (04:19)
[2024-01-29] MEDS: TORADOL 10 MG IV ×2 (05:35→13:06)
[2024-01-29 06:46] LABS: % Basophils 0.2 % (0-2); % Immature Granulocytes 0.3 % (0-0.5); % Lymphocytes 8.9 % (20.5-51.1); % Monocytes 6.1 % (1.7-9.3); % Neutrophils 84.5 % (42.2-75.2); Absolute Lymphocytes 1.1 10^3/uL (1.2-3.4); Absolute Monocytes 0.7 10^3/uL (0.1-0.6); Hematocrit 36.8 % (39.0-52.0); Mean Corp Hgb Conc. 32.6 g/dL (33.0-37.0); Mean Corpuscular Hgb 30.2 pg (27.0-31.0); Mean Corpuscular Volume 92.7 fL (80.0-94.0); Nucleated Red Blood Cells % 0 % (-); Platelet Count 252 10^3/uL (130-400); Red Blood Cell Count 3.97 10^6/uL (4.70-6.10); Red Cell Dist. Width 12.9 % (11.5-14.5); White Blood Cell Count 11.9 10^3/uL (4.8-10.8)
[2024-01-29 07:02] LABS: Blood Urea Nitrogen 18 mg/dl (9-20); Calcium 9.2 mg/dl (8.4-10.2); Carbon Dioxide 25 mmol/L (22-30); Chloride 102 mmol/L (98-107); Estimated Creatinine Clearance > 125 ml/min; Glucose 127 mg/dl (70-99); Potassium 4.3 mmol/L (3.5-5.1); Sodium 142 mmol/L (135-145); eGFR > 60.00
[2024-01-29 07:50] VITALS: BP 112/74
--- NOTE | 2024-01-29 08:41 | W.PN.HOSP.TC ---
Today's Communication/Plan
-
Discharge planning
Assessment / Plan
Assessment / Plan
Physical exam:
General: Well Developed, Well Nourished and No Apparent Distress
HEENT: Normocephalic, Atraumatic and Moist Mucous Membranes
Respiratory: Clear to Auscultation; Negative Wheezes, Rales or Rhonchi
Cardiac: Regular Rhythm and S1/S2
GI: Soft, Nontender and Nondistended
Musculoskeletal: Right flank discomfort. No Clubbing, No Cyanosis and No Edema
Neuro: Awake, Alert and Oriented
Psych: Calm
A/P:
# Proximal right ureter stone with mild hydronephrosis
-Strain urine
-CT scan shows 3 mm stone in proximal ureter
-Urinalysis shows 16-20 WBCs
-IV fluids
-Ceftriaxone
-Toradol, Dilaudid, zofran
-Strain urine
-Urology consulted--> status post cystoscopy, right URS/laser lithotripsy/stone extraction/stent placement on 01/27
-Discussed with urology today and cleared for discharge. Residual discomfort more so from spasm and stent since ureteral stone has been taking care.
History of snowboarding accident with resulting in traumatic brain injury, clavicular fracture status post surgery, splenic laceration
Marijuana user
Full code
DVT prophylaxis�SCDs
Anticipated Discharge: Today
Subjective/Interval History
-
Date of Service: January 29, 2024
Patient with discomfort on and off but improved. Afebrile
Objective Data
-
Labs:
Laboratory Results
01/29/24
05:12
WBC 11.9 H
Hgb 12.0 L
Hct 36.8 L
Plt Count 252 D
Sodium 142
Potassium 4.3
Chloride 102
Carbon Dioxide 25
BUN 18
Creatinine 0.8
Glucose 127 H
Calcium 9.2
Vital Signs:
Vital Signs
Temp Pulse Resp BP Pulse Ox
97.4 F 61 14 112/74 99
01/29/24 07:50 01/29/24 07:50 01/29/24 07:50 01/29/24 07:50 01/29/24 07:50
I&O
01/28/24 01/29/24 01/30/24
06:59 06:59 06:59
Intake Total 1040 / 1040 4020 / 4020
Output Total 600 / 600 380 / 380
Balance 440 / 440 3640 / 3640
[2024-01-29] MEDS: DILAUDID 0.5 MG IV (09:20)
--- NOTE | 2024-01-29 09:59 | W.PN.UPDATE ---
Update Note
Progress Note Update
01/28: s/p right ureteroscopy/laser lithotripsy/stone extraction/stent placement.
H/o TBI.
Noted to have significant bladder spasms and right flank/abdominal pain from urine reflex (via stent) in PACU - improved.
- OK to d/c home from urologic perspective
- advise oxybutynin 5 mg BID prn stent bother x7 days on discharge
- F/U with Dr. Rice in 10-14 days for stent removal in office (contact information in discharge plan)
D/w Dr. Núñez.
--- NOTE | 2024-01-29 12:42 | CM ---
Reviewed the chart notes. Patient is for discharge today to home. Patient's family to transport. CM continues to be available to patient/family and is monitoring medical plan for needs at discharge.
Plan: Discharge to home today. No needs identified at this time.
[2024-01-29 13:20] VITALS: BP 135/79
== END 2024-01-29 13:57 | disposition home or self-care (01) | DRG 661 ==
LOC: 2 SOUTH 08:44
PROVIDERS: Physician Assistant; Surgery; ADMITTING PHYSICIAN Hospitalist; ATTENDING PHYSICIAN Hospitalist; CONSULT PHYSICIAN Specialist; EMERGENCY PHYSICIAN Emergency Medicine; FAMILY PHYSICIAN Family Medicine
PROC: 0TC68ZZ Extirpation of Matter from Right Ureter, Via Natural or Artificial Opening Endoscopic (ICD-10-PCS; 2024-01-29)
PROC: 0T768DZ Dilation of Right Ureter with Intraluminal Device, Via Natural or Artificial Opening Endoscopic (ICD-10-PCS; 2024-01-29)
DX: N13.2 Hydronephrosis with renal and ureteral calculous obstruction (principal); Z87.891 Personal history of nicotine dependence
CPT/HCPCS: 74018; 76000; 80048; 80053; 82365; 85025; 96361; 96374; 96375; 96376; 99285; C1769; C1894; C2617

== ENCOUNTER 2024-02-13 18:36 | Emergency (ER) | payer OTHER, SELFPAY ==
[2024-02-13 18:37] VITALS: BP 134/98
--- NOTE | 2024-02-13 18:41 | ED.GENMED ---
ED Provider Triage
<Trey French PA-C - Last Filed: 02/13/24 18:43>
-
Patient seen by provider in Triage?: Seen in Triage
28-year-old male presents for evaluation of persistent right flank pain and now worsening urinary symptoms. He notes frequency and dysuria. He was here recently had a right sided kidney stone. He had a stent placed. He has been trying to
follow-up with urology as an outpatient for stent removal however he has not been able to get an appointment or get in touch with them. He denies fevers or vomiting. He notes the urine is now dark in color which had been clear for some time. No
current antibiotics. Patient expresses interest in having his stent removed
Vital signs are stable to triage but does appear somewhat uncomfortable. Will start workup with urinalysis and labs.
Patient received a medical screening examination by healthcare provider through triage. He may warrant further workup.
History of Present Illness
<Trey French PA-C - Last Filed: 02/13/24 18:43>
General
Chief Complaint: Male Genito-Urinary Symptoms
Time Seen by Provider: 02/13/24 18:56
<TREMAYNE Ruby - Last Filed: 02/13/24 21:17>
General
Source: patient
Exam Limitations: none
History of Present Illness
History of Present Illness:
This is a 28 year old male that comes in with multiple complaints. States that he was here about 2-3 weeks ago as he had lower back pain. States that he was diagnosed with kidney stones and they plast a stent and did Lithotripsy. States that he
started with pain at the tip of his penis and the right abd. States that this started about 2 days ago and today he could hardly urinate. States that when he did urinate it was bloody. States that he has had diarrhea, occasional headache and
dizziness and urinary burning. Denies any fever, chills, chest pain, SOB, nausea, vomiting.
Past History
<Trey French PA-C - Last Filed: 02/13/24 18:43>
Past History
ED Past Medical History: Other (TBI, Lacerated Spleen)
ED Past Surgical History: Orthopedic (Clavicle repair Left)
Social History
Tobacco: Former smoker
Alcohol: Occasional
Drug: Marijuana
Personal: Single
Living: with family
<TREMAYNE Ruby - Last Filed: 02/13/24 21:17>
Past History
ED Past Medical History: Cancer (Left testicular cancer) and Other (TBI, Lacerated Spleen, Renal calculus)
ED Past Surgical History: Urological (Stent , Mass removed form left testicle)
Social History
Tobacco: Vaping
Alcohol: Occasional
Drug: Marijuana
Personal: Single
Living: with family
Review of Systems
<TREMAYNE Ruby - Last Filed: 02/13/24 21:17>
Review of Systems
All Other Systems: ROS reviewed and negative except as documented in HPI and ROS
Constitutional: Reports no symptoms; Denies fever or chills
EENT: Reports no symptoms
Respiratory: Reports no symptoms; Denies cough or trouble breathing
Cardiac: Reports no symptoms; Denies chest pain
ABD/GI: Reports abdominal pain (Right sided) and diarrhea; Denies nausea or vomiting
: Reports dysuria, frequency, difficulty voiding and other (Left testicle discomfort); Denies urgency
Musculoskeletal: Reports no symptoms
Skin: Reports no symptoms
Neurological: Reports dizzy and headache (Occasional)
Psychiatric: Reports no symptoms
Phy Exam
<TRMEAYNE Ruby - Last Filed: 02/13/24 21:17>
General Physical Exam
General Presentation: well appearing and no apparent distress
General age: appears stated age
General Skin: warm and dry
General Habitus: normal
General Mental: alert
General Hydration: dry mucous membranes
ENT Exam
ENT Exam: TM's normal, pharynx normal and neck supple
Eye Exam
Eye Exam: EOMI
Cardiovascular Exam
Cardiovascular Exam: regular rate/rhythm, no edema, no murmur and normal peripheral pulses
Pulmonary Exam
Pulmonary Exam: lungs clear, no respiratory distress, no rales, chest non tender, no crackles, no rhonchi, no wheezing and no cough
Gastrointestinal Exam
Gastrointestinal Exam: normal bowel sounds, soft, no organomegaly, no pulsatile mass, non distended, cva tenderness (Slight right sided) and tender (Right sided abd tenderness with palpation)
Genitourinary Exam Male
Exam Male: circumcised, normal external genitalia, normal testicular exam, no evidence of trauma, no lesions, no testicular swelling and no testicular tenderness
Musculoskeletal Exam
Musculoskeletal Exam: full ROM and no edema
Skin Exam
Skin Exam: normal color, warm/dry, no rash and no petechia
Psychiatric Exam
Psychiatric Exam: normal mood/affect
Course
<Trey French PA-C - Last Filed: 02/13/24 18:43>
Orders/Labs/Results
Orders:
Orders
02/13/24 18:57
Complete Blood Count/With Diff Urgent
Comprehensive Metabolic Panel Urgent
Urinalysis Reflex To Culture Urgent
Date Specimen was Collected: 02/13/24
Time Specimen was Collected: 18:47
Urine Microscopic Reflex Cult Urgent
Urine Culture Urgent
ANTHONY Source: U
Specimen Description:
Date Specimen was Collected: 02/13/24
Time Specimen was Collected: 18:47
02/13/24 19:15
CT Abd/pel Without Iv Or Oral Urgent
Comment:
Reason For Exam: Right sided abd pain
0.9% Sodium Chloride 1000 ml [Nss] 1,000 ml IV BOLUS
US Scrotum Urgent
Comment:
Reason For Exam: left sided discomfort
02/13/24 20:34
Ketorolac [Toradol] 30 mg IV NOW STA
Abnormal Lab Results
02/13/24
18:57
RBC 4.32 L 10^6/uL
(4.70-6.10)
Hct 38.3 L %
(39.0-52.0)
Absolute Monos (auto) 0.7 H 10^3/uL
(0.1-0.6)
Albumin 5.1 H g/dl
(3.5-5.0)
Ur Occult Blood Reflex 3+ A
(Negative)
Leukocyte Esterase Rfl 1+ A
(Negative)
Urine RBC 70-80 A /HPF
(0-2)
Urine Bacteria (Reflex) Few A
(Negative)
Urine Albumin (Reflex) 2+ A
(Neg - Trace)
02/13/24 18:57
02/13/24 18:57
Vital Signs
Initial and Last Documented VS:
Initial Vital Signs
Temp Pulse Resp BP Pulse Ox
99.0 F 104 16 134/98 97
02/13/24 18:37 02/13/24 18:37 02/13/24 18:37 02/13/24 18:37 02/13/24 18:37
Last Documented Vital Signs
Temp Pulse Resp BP Pulse Ox
99.0 F 104 16 121/97 99
02/13/24 18:37 02/13/24 18:37 02/13/24 18:37 02/13/24 19:00 02/13/24 19:15
<TREMAYNE Ruby - Last Filed: 02/13/24 21:17>
Orders/Labs/Results
Orders:
Orders
02/13/24 18:57
Complete Blood Count/With Diff Urgent
Comprehensive Metabolic Panel Urgent
Urinalysis Reflex To Culture Urgent
Date Specimen was Collected: 02/13/24
Time Specimen was Collected: 18:47
Urine Microscopic Reflex Cult Urgent
Urine Culture Urgent
ANTHONY Source: U
Specimen Description:
Date Specimen was Collected: 02/13/24
Time Specimen was Collected: 18:47
02/13/24 19:15
CT Abd/pel Without Iv Or Oral Urgent
Comment:
Reason For Exam: Right sided abd pain
0.9% Sodium Chloride 1000 ml [Nss] 1,000 ml IV BOLUS
US Scrotum Urgent
Comment:
Reason For Exam: left sided discomfort
02/13/24 20:34
Ketorolac [Toradol] 30 mg IV NOW STA
Abnormal Lab Results
02/13/24
18:57
RBC 4.32 L 10^6/uL
(4.70-6.10)
Hct 38.3 L %
(39.0-52.0)
Absolute Monos (auto) 0.7 H 10^3/uL
(0.1-0.6)
Albumin 5.1 H g/dl
(3.5-5.0)
Ur Occult Blood Reflex 3+ A
(Negative)
Leukocyte Esterase Rfl 1+ A
(Negative)
Urine RBC 70-80 A /HPF
(0-2)
Urine Bacteria (Reflex) Few A
(Negative)
Urine Albumin (Reflex) 2+ A
(Neg - Trace)
02/13/24 18:57
02/13/24 18:57
Urine negative for infection. Labs unremarkable.
Vital Signs
Initial and Last Documented VS:
Initial Vital Signs
Temp Pulse Resp BP Pulse Ox
99.0 F 104 16 134/98 97
02/13/24 18:37 02/13/24 18:37 02/13/24 18:37 02/13/24 18:37 02/13/24 18:37
Last Documented Vital Signs
Temp Pulse Resp BP Pulse Ox
99.0 F 104 16 121/97 99
02/13/24 18:37 02/13/24 18:37 02/13/24 18:37 02/13/24 19:00 02/13/24 19:15
<TREMAYNE Ruby - Last Filed: 02/13/24 21:17>
MDM/Problems Addressed
Differential Diagnosis Includes:
Renal calculus, UTI,
MDM/Problems Addressed:
This is a 28 year old male that comes in with multiple complaints. States that he has right sided abd pain, urinary burning and the tip of his penis hurts. States that he is also concerned about the left testicle that he feels that the cord holding
the testicle feels larger and he had left testicular cancer in the past.
Will get labs, Urine US of scrotum and CT abd/pelvis. Will also give IV fluids.
Back into see patient. Explained that he has bilateral new small 1mm stones that will most likely pass on there own. Patient to increase his water intake to 8-8oz glasses daily. Follow up with the Urologist on Sunday next week as scheduled. Tylenol
and Ibuprofen for pain. Return with any concerns.
Chronic conditions affecting care:
Renal calculus
Acute Exacerbation and/or Progression of Chronic Illness:
Renal calculus
<TREMAYNE Ruby - Last Filed: 02/13/24 21:17>
*Radiology
Radiology exam reviewed: radiology read reviewed (US-Small bilateral hydroceles. Small bilateral epididymal head cysts versus spermatoceles. CT abd/pelvis-Tiny bilateral 1mm nonobstructing renal stones. New bilaterally. A previous stone in the
right kidney is no longer present. Right double-J urinary stent. New. Moderate fecal material in the ) and other (CT cont- colon. Progressed, Mild diffuse bladder wall thickening. stable. This can be seen with cystitis or bladder outlet obstruction )
*Pulse Oximetry
Patient hypoxic: no
*EKG
Interpreted by ED Provider?: NA
Rate: EKG- N/A
*Graphite Mill Operator Interpretation
Rate: Graphite Mill Operator- N/A
*Critical Care Note
Total Time (30-74mins, 75-104mins- exclusive of procedures): Not Applicable
ED Attending Note
<Trey French PA-C - Last Filed: 02/13/24 18:43>
-
Portions of this chart may have been created with voice recognition software.� Occasional wrong word or��sound alike� substitutions may have occurred due to the inherent limitations of voice recognition software.
Discharge Plan
Departure
Patient Disposition: Home (Routine Discharge)
Date of Disposition: 02/13/24
Time of Disposition: 21:00
Patient with high blood pressure during this ER visit?: Yes
Condition: Good
Covid-19: Not Applicable
Discharge Problem:
Renal calculus, bilateral
Instructions: Kidney Stone, Adult ED, BLOOD PRESSURE
Prescriptions:
No Action
ondansetron 4 mg tablet,disintegrating
4 mg PO Q8H PRN (Reason: nausea and vomiting) Qty: 10 0RF
oxycodone 5 mg tablet
5 mg PO Q8H PRN (Reason: Pain) Qty: 10 0RF
cephalexin 500 mg capsule
500 mg PO BID 7 Days Qty: 14 0RF
oxybutynin chloride 5 mg tablet
5 mg PO BID PRN (Reason: bladder /stent spasms) 7 Days Qty: 14 0RF
acetaminophen [Tylenol 8 Hour] 650 mg tablet extended release
650 mg PO Q8H PRN (Reason: Pain) Qty: 14 0RF
Referrals:
NONE,* [Family Provider] -
Activity Restrictions/Additional Instructions:
As discussed, your blood work is normal and your Urine is negative for infection. Your Ultrasound shows that you have small bilateral cyst. Your CT shows that you have bilateral renal calculus that are nonobstructing. Please increase your water
intake to 8-8oz glasses daily. You may use Tylenol 1000mg every 6 hours for pain and alternate with Ibuprofen 600mg every 6 hours with food. Follow up with the Urologist on Sunday as scheduled. IF YOU HAVE FEVER, OR YOU HAVE ANY OTHER CONCERNS
PLEASE RETURN TO THE EMERGENCY ROOM.
Interventions
Interventions:
*Risk Screen - Suicide Last Done: 02/13/24 18:37
*General Assessment Last Done: 02/13/24 18:37
*Neglect/Abuse Screening Last Done: 02/13/24 18:37
*ED COVID-19 Vaccine History Last Done: 02/13/24 18:37
ED-Male Genitourinary Assessment Last Done: 02/13/24 18:59
Discharge Date and Time
Print Language: SLOVAK
[2024-02-13 18:58] VITALS: BP 150/80
[2024-02-13 19:00] VITALS: BP 121/97
[2024-02-13 19:15] LABS: % Basophils 0.5 % (0-2); % Eosinophils 1.6 % (0-6); % Immature Granulocytes 0.2 % (0-0.5); % Lymphocytes 30.3 % (20.5-51.1); % Monocytes 8.1 % (1.7-9.3); % Neutrophils 59.3 % (42.2-75.2); Absolute Eosinophils 0.1 10^3/uL (0-0.7); Absolute Lymphocytes 2.5 10^3/uL (1.2-3.4); Absolute Monocytes 0.7 10^3/uL (0.1-0.6); Absolute Neutrophils 4.8 10^3/uL (1.4-6.5); Hematocrit 38.3 % (39.0-52.0); Mean Corp Hgb Conc. 33.9 g/dL (33.0-37.0); Mean Corpuscular Hgb 30.1 pg (27.0-31.0); Mean Corpuscular Volume 88.7 fL (80.0-94.0); Mean Platelet Volume 9.3 fL (7.4-10.4); Nucleated Red Blood Cells % 0 % (-); Platelet Count 271 10^3/uL (130-400); Red Blood Cell Count 4.32 10^6/uL (4.70-6.10); Red Cell Dist. Width 12.8 % (11.5-14.5); White Blood Cell Count 8.1 10^3/uL (4.8-10.8)
[2024-02-13 19:18] LABS: Urine Albumin 2+ (Neg - Trace); Urine Bilirubin Negative (Negative); Urine Character Clear (Clear); Urine Color Yellow; Urine Glucose Negative (Negative); Urine Ketone Negative (Negative); Urine Leukocyte 1+ (Negative); Urine Nitrite Negative (Negative); Urine Occult Blood 3+ (Negative); Urine Urobilinogen Negative (Neg - 1+)
[2024-02-13] MEDS: NSS 1000 IV (19:30)
[2024-02-13 19:31] LABS: ALT (SGPT) 19 U/L (0-50); AST (SGOT) 37 U/L (17-59); Albumin 5.1 g/dl (3.5-5.0); Alkaline Phosphatase 73 U/L (38-126); Blood Urea Nitrogen 15 mg/dl (9-20); Calcium 9.8 mg/dl (8.4-10.2); Carbon Dioxide 24 mmol/L (22-30); Chloride 103 mmol/L (98-107); Glucose 86 mg/dl (70-99); Potassium 4.3 mmol/L (3.5-5.1); Sodium 140 mmol/L (135-145); Total Bilirubin 0.6 mg/dl (0.2-1.3); Total Protein 7.9 g/dl (6.3-8.2); eGFR > 60.00
[2024-02-13 19:33] LABS: Urine Squamous Cell 0-2 /LPF (Few)
[2024-02-13 19:34] LABS: Urine Bacteria Few (Negative); Urine Red Blood Cell 70-80 /HPF (0-2)
[2024-02-13] MEDS: TORADOL 30 MG IV (20:37)
== END 2024-02-13 21:23 | disposition home or self-care (01) ==
LOC: EMR 18:36
PROVIDERS: Physician Assistant; EMERGENCY PHYSICIAN Emergency Medicine
DX: N20.0 Calculus of kidney (principal); Z87.891 Personal history of nicotine dependence; Z85.47 Personal history of malignant neoplasm of testis
CPT/HCPCS: 99284; 96374; 96361; 74176; 76870; 80053; 81003; 81015; 85025; 87086; 93976